=== PATIENT | male | born 1980 | race American Indian/Alaskan Native ===

== ENCOUNTER 2018-06-24 10:37 | Day surgery (SDC) | payer OTHER ==
[2018-06-23 12:19] VITALS: BMI 21.7
--- NOTE | 2018-06-24 09:01 | HP ---
History & Physical Update - History History: No Change - Physical Physical: No Change - Assessment Assessment: No Change - Plan Plan: No Change (Patient with chronic rectal bleeding , to have ultrasound guided ligation of hemorrhoidal artery and bundles. Consent obtained.)
[2018-06-24] MEDS ORDERED: MIDAZOLAM HCL 2 MG/2 ML SINGLE DOSE VIAL ONE (11:05)
[2018-06-24 11:11] LABS: BASO % 0.5 % (0-2.0); EOS % 3.5 % (0-4.5); HEMATOCRIT 44.2 % (35.4-49); HEMOGLOBIN 14.7 GM/dL (11.7-16.9); LYMPH % 40.3 % (8-40); MCH 27.2 pg (25.7-33.7); MCHC 33.3 g/dl (32.0-35.9); MEAN CELL VOLUME 81.9 fl (80-96); MEAN PLT VOLUME 8.5 fl (7.5-11.1); MONO % 10.9 % (3.8-10.2); NEUT % 44.8 % (42.8-82.8); PLATELET COUNT 228 K/MM3 (134-434); WHITE BLOOD COUNT 4.3 K/mm3 (4.0-10.0)
[2018-06-24] MEDS ORDERED: BUPIVACAINE HCL/PF 0.5% (5MG/ML) 10 ML VIAL ONE (11:11)
[2018-06-24] MEDS ORDERED: LIDOCAINE 1%/EPI 1:100000 (20 ML MULTI DOSE VIAL) ONE (11:16)
[2018-06-24] MEDS ORDERED: ROCURONIUM BROMIDE 50 MG/5 ML VIAL ONE (11:17)
[2018-06-24] MEDS ORDERED: ONDANSETRON 4 MG/2 ML VIAL IVPUSH PRN (11:58)
[2018-06-24] MEDS ORDERED: LACTATED RINGERS SOLUTION 1,000 ML IV SCH (12:00)
[2018-06-24] MEDS ORDERED: BUPIVACAINE HCL/PF 0.5% (5MG/ML) 10 ML VIAL IJ ONE (12:24)
[2018-06-24] MEDS ORDERED: ceFAZolin SODIUM 1 GM VIAL ONE (12:39)
[2018-06-24] MEDS ORDERED: DEXAMETHASONE SOD PHOSPHATE 4 MG/1 ML VIAL ONE (12:39)
[2018-06-24] MEDS ORDERED: SODIUM CHLORIDE 0.9% P/F 10 ML VIAL IJ ONE (12:39)
[2018-06-24] MEDS ORDERED: NEOSTIGMINE METHYLSULFATE 0.5 MG/ML - 10 ML MDV ONE (12:45)
[2018-06-24] MEDS ORDERED: GLYCOPYRROLATE 0.2 MG/1 ML VIAL ONE (12:48)
--- NOTE | 2018-06-24 12:52 | OP ---
Operative Note - Note: Operative Date: 06/24/18 Pre-Operative Diagnosis: Bleeding prolapsed hemorrhoids. Operation: Proctosigmoidoscopy with anal dilation ,. Ultrasound guided ligation of hemorrhoidal artery , and bundles x3 at 1, 5, and 11 O'clock position , with hemorrhoidopexy. Findings: Large prolapsed hemorrhoids at 5, 1 and 11 o'clock position, with bleeding. Post-Operative Diagnosis: Same as Pre-op Surgeon: Urban Beckham Anesthesiologist/AIRPLANE CAPTAIN: Rayshawn Alex Anesthesia: General Specimens Removed: None Estimated Blood Loss (mls): 50 Operative Report Dictated: Yes
[2018-06-24] MEDS ORDERED: NALOXONE HCL 0.4 MG/ML VIAL ONE (13:10)
[2018-06-24] MEDS ORDERED: PROPOFOL 20 ML ONE (13:20)
[2018-06-24] MEDS ORDERED: ACETAMINOPHEN 1000 MG/100 ML VIAL (NON FORMULARY) IVPB ONE (14:19)
--- NOTE | 2018-06-24 14:26 | OP ---
DATE OF OPERATION: 06/24/2018 PREOPERATIVE DIAGNOSIS: Large bleeding prolapsed hemorrhoids. POSTOPERATIVE DIAGNOSIS: Large bleeding prolapsed hemorrhoids. PROCEDURE: Proctosigmoidoscopy with anal dilation, ultrasound-guided ligation of hemorrhoidal artery and bundles x3 at 1 o'clock, 5 o'clock, and 11 o'clock positions with hemorrhoidopexy. SURGEON: Rhonda Stiles MD ANESTHESIA: General anesthesia. OPERATIVE DESCRIPTION: This 37-year-old man had large prolapsed hemorrhoids continuously bleeding. He has had this for more than 15 years. Patient was brought in for ligation of hemorrhoids, hemorrhoidal artery in bundles. Consent was obtained. Risks, benefits, and complications were discussed with the patient. Patient was given general anesthesia. He was placed on the operating table in the jackknife position. The THz instrument was used during the procedure. A proctosigmoidoscopy with anal dilation was performed. Patient had large protruding hemorrhoids, mainly at the 1 o'clock and 5 o'clock position. On proctoscopy, there was another large at the 11 o'clock position. Using the THz instrument, the ultrasound machine was used and the hemorrhoidal subcutaneous artery, submucosal artery, was identified. As this first procedure was done at the 11 o'clock position, the artery was then ligated with 2-0 Vicryl sutures using the TMz instrument. This muffled the arterial signal. After this, the hemorrhoidal bundle that was associated with it, was ligated in continuity all the way to the external skin. Once this was done, the suture was then carried over towards, the first suture to invert the hemorrhoid within the anal canal. Thus creating a hemorrhoidopexy. A similar procedure was done at 5 o'clock and 1 o'clock positions; 5 o'clock was the largest. At the completion of the procedure, the hemorrhoid was inverted into the anal canal and not protruding. Hemostasis was satisfactory at the completion of the procedure. Then, 0.5% Marcaine was injected circumferentially into the external sphincter. The anal canal was adequately open, and there was no narrowing at the anal canal. Patient tolerated the procedure well, was extubated, and was sent to the recovery room in satisfactory and stable condition. Guadalupe STILES/[id number] MTDD
[2018-06-24 15:53] VITALS: BP 125/56; PULSE 97; TEMP 97.5
== END 2018-06-24 16:20 | disposition home or self-care (01) ==
LOC: JASU-SURG 10:37
PROVIDERS: ATTEND Specialist
PROC: 06LY0CC Occlusion of Hemorrhoidal Plexus with Extraluminal Device, Open Approach (ICD-10-PCS; principal; 2018-06-24 12:00)
DX: K64.8 Other hemorrhoids (principal)
CPT/HCPCS: 36415; 85025; 94760; J0131

== ENCOUNTER 2018-06-28 07:44 | Emergency (ER) | payer OTHER ==
[2018-06-28 07:57] VITALS: BP 125/78; PULSE 106; TEMP 98.2; BMI 21.7
--- NOTE | 2018-06-28 08:07 | PDOC ---
History of Present Illness - General Chief Complaint: Pain, Acute Stated Complaint: RECTAL BLEEDING/PAIN Time Seen by Provider: 06/28/18 08:07 History Source: Patient Exam Limitations: No Limitations - History of Present Illness Initial Comments: 06/28/18 08:28 37 year old male with PMH prolapsed hemorrhoids s/p proctosigmoidoscopy with US guided ligation of hemorrhoidal artery and bundles and hemorrhoidiopexy presenting for rectal pain and bleeding x3 days. Last BM x3 days ago. Denies fever, chills, nausea, vomiting, abdominal pain. Surgeon - Dr. Beckham Allergies - NKDA Past History - Past Medical History Allergies/Adverse Reactions: Allergies Allergy/AdvReac Type Severity Reaction Status Date / Time No Known Allergies Allergy Verified 06/28/18 07:56 Home Medications: Ambulatory Orders Docusate Sodium [Colace] 100 mg PO BID #30 capsule 06/24/18 Ibuprofen [Motrin -] 400 mg PO TID #21 tablet 06/24/18 Anemia: No Asthma: No Cancer: No Cardiac Disorders: No CVA: No COPD: No CHF: No Dementia: No Diabetes: No GI Disorders: No Disorders: No HTN: No Hypercholesterolemia: No Liver Disease: No Seizures: No Thyroid Disease: No - Immunization History Immunization Up to Date: No - Suicide/Smoking/Psychosocial Hx Smoking History: Never smoked Have you smoked in the past 12 months: No Information on smoking cessation initiated: No Hx Alcohol Use: No Drug/Substance Use Hx: No Substance Use Type: None Hx Substance Use Treatment: No Review of Systems - Review of Systems Able to Perform ROS?: Yes Comments:: 06/28/18 08:31 General: denies fever, chills, night sweats, generalized weakness. HEENT: denies sore throat, rhinorrhea, ear pain. Heart: denies chest pain, palpitations, syncope, lower extremity swelling, diaphoresis. Respiratory: denies shortness of breath, cough, sputum production, hematemesis. Abdomen: denies abdominal pain, nausea, vomiting, diarrhea, constipation, blood in stool. : admits to rectal pain and bleeding. denies dysuria, increased urinary frequency, hematuria, urinary incontinence, flank pain. Back: denies back pain, flank pain. Musculoskeletal: denies joint pain, muscle pain, joint swelling. Neurological: denies headache, dizziness, numbness, tingling, weakness. Skin: denies rash, laceration, abrasion. *Physical Exam - Vital Signs Last Vital Signs Temp Pulse Resp BP Pulse Ox 98.2 F 106 H 16 125/78 100 06/28/18 07:53 06/28/18 07:53 06/28/18 07:53 06/28/18 07:53 06/28/18 07:53 - Physical Exam Comments: 06/28/18 08:31 Appearance: comfortable. HEENT: head is normocephalic, atraumatic. EOMI. PERRLA. Neck: supple. Full ROM. Heart: tachycardic. regular rhythm. no murmurs, rubs or gallops. No pericardial friction rub. Lungs: clear to auscultation bilaterally. no crackles, rhonchi or wheezing. no stridor. Abdomen: soft, nontender. normal bowel sounds. no rebound, guarding, masses. : 1 protruding internal hemorrhoid, appears normal. external genitalia appears normal. Extremities: Peripheral pulses intact and equal. No lower extremity edema. Neurological: Alert. Oriented x3. CN 2-12 grossly intact. Moves all four extremities. Medical Decision Making - Medical Decision Making 06/28/18 08:26 37 year old male with PMH prolapsed hemorrhoids s/p proctosigmoidoscopy with US guided ligation of hemorrhoidal artery and bundles and hemorrhoidiopexy presenting for rectal pain and bleeding x3 days. Last BM x3 days ago. Initial Vital Signs Temp Pulse Resp BP Pulse Ox 98.2 F 106 H 16 125/78 100 06/28/18 07:53 06/28/18 07:53 06/28/18 07:53 06/28/18 07:53 06/28/18 07:[address] Beckham paged. 06/28/18 08:32 Dr. Beckham states that this procedure is painful and can cause bleeding. He states to give the pt viscous lidocaine and he will see him in the office today at 1: 00 pm in the [place] office. Viscous lidocaine ordered. 06/28/18 09:12 Pt will be discharged with follow up instructions and strict return precautions. I spoke with the patient about the plan for his care. He expressed that he is still in pain. We discussed admission for intractable pain, he stated he has young children at home and at this time does not want to be admitted to the hospital. He states he will follow up this afternoon at Dr. Beckham's [place] office at 1:00 PM. 06/28/18 09:47 Prior to signing paperwork pt left the department without notifying hospital staff. Pt eloped. *DC/Admit/Observation/Transfer Diagnosis at time of Disposition: Rectal pain - Discharge Dispostion Disposition: HOME Condition at time of disposition: Stable Decision to Admit order: No - Referrals Referrals: Jonh Way MD [Primary Care Provider] - - Patient Instructions Additional Instructions: You were seen today for rectal pain and bleeding. I spoke with your surgeon, Dr. Beckham, who states pain and bleeding is normal after this procedure. He states that he will see you in the [place] office today at 1:00 PM. Call his office to find out the location. Do not miss this appointment. Return to the Emergency Department for shortness of breath, lightheadedness, passing out, chest pain, fever, chills, nausea, vomiting or any other new, worsening or concerning symptoms. Your care is not complete until you follow up. - Post Discharge Activity Forms/Work/School Notes: Back to Work
[2018-06-28] MEDS ORDERED: LIDOCAINE VISCOUS 2% ORAL/TOP 100 ML BOTTLE MM ONE ×3 (08:37→09:29)
--- NOTE | 2018-06-28 08:44 | PDOC ---
Attending Attestation - Resident Resident Name: Lanie Preciado - ED Attending Attestation I have performed the following: I have examined & evaluated the patient, The case was reviewed & discussed with the resident, I agree w/resident's findings & plan, Exceptions are as noted - HPI HPI: 06/28/18 08:23 Mr Gregory is a 37 yo m who presents to the ER for evaluation of rectal pain He is 4 days s/p hemorrhoidectomy Pt reports pain and spotting No fevers or chills Took percocet for pain which did not help Pt has not had a bowel movement - Physicial Exam PE: 06/28/18 08:23 GENERAL: The patient is very uncomfortable ABDOMEN: Soft, nontender RECTAL examination: per Dr. Preciado NEUROLOGICAL: Cranial nerves II through XII grossly intact. Normal speech. No focal neurological deficits. MUSCULOSKELETAL: nml SKIN: Warm, Dry, no signs of cellulitis 06/28/18 09:32 - Medical Decision Making 06/28/18 08:45 Call placed to pt surgeon, Dr Beckham Per his request, will give Lidocaine gel topically Follow up TODAY at 1pm with Dr. Beckham Pt reports that he is still in pain We have offered to contact Dr Beckham to see him in the hospital and place him on observation to Dr Cortes Pt is considering this Pt could not be found for re assessment Clinical impression: post operative pain, initial presentation
[2018-06-28] MEDS ORDERED: LIDOCAINE VISCOUS 2% ORAL/TOP 20 ML UNIT-DOSE CUP ONE ×2 (08:48→09:45)
== END 2018-06-28 09:58 | disposition home or self-care (01) ==
LOC: JER 07:44
DX: K62.89 Other specified diseases of anus and rectum (principal); K64.8 Other hemorrhoids; G89.18 Other acute postprocedural pain
CPT/HCPCS: 99282-25